=== PATIENT | female | born 1995 | race Caucasian/White ===

== ENCOUNTER → 2021-07-05 | Outpatient (CLI) | payer BC ==
[~2021-07-05] MED LIST: ASPI81CH33 PO; GLYB5TAB6 PO; PREN200C PO
== END ==
LOC: M LABSMTC 10:48
PROVIDERS: ATTEND Anesthesiology
DX: Z01.818 Encounter for other preprocedural examination (principal); Z11.52 Encounter for screening for COVID-19

== ENCOUNTER 2021-07-10 05:03 | Inpatient (IN) | payer BC ==
[2021-07-10] VITALS (10 sets, daily range): BP systolic 113–147; BP diastolic 65–88
[~2021-07-10] VITALS: Ht 157.5 cm; Wt 107.5 kg
[2021-07-10] MEDS ORDERED: LR 800 ML IV ONE (05:30)
[2021-07-10] MEDS ORDERED: BICITRA 30ML SOLN UDC PO ONE (06:00)
[2021-07-10] MEDS ORDERED: CLINDAMYCIN 900 MG in IV 1 EA IV ONE (06:00)
[2021-07-10] MEDS ORDERED: LR 1,000 ML IV SCH ×3 (06:00→09:25)
[2021-07-10] MEDS ORDERED: HOME MED LIST COMPLETE! XX SCH (06:05)
[2021-07-10 06:12] LABS: HEMATOCRIT 35.1 % (36.0-47.0); HEMOGLOBIN 11.1 g/dl (12.0-15.5); MEAN CORPUSCULAR HEMOGLOBIN 25.9 pg (27.0-33.0); MEAN CORPUSCULAR HGB CONC 31.6 g/dl (32.0-36.5); MEAN CORPUSCULAR VOLUME 81.8 fl (80.0-96.0); PLATELET COUNT, AUTOMATED 250 10^3/uL (150-450); RED BLOOD COUNT 4.29 10^6/uL (4.00-5.40); WHITE BLOOD COUNT 8.5 10^3/uL (4.0-10.0)
[2021-07-10] MEDS ORDERED: GENTAMICIN 380 MG in D5W 100 ML IV ONE (06:15)
[2021-07-10] MEDS ORDERED: diphenhydrAMINE 50MG/ML VIAL (J1200) IV PRN (07:58)
[2021-07-10] MEDS ORDERED: METOCLOPRAMIDE INJ 10MG/2ML VIAL (J2765 PER 1) IV PRN ×2 (07:58→09:25)
[2021-07-10] MEDS ORDERED: NALOXONE INJ 0.4MG/1ML VIAL (J2310 PER 1MG) IV PRN ×2 (07:58)
[2021-07-10] MEDS ORDERED: NALBUPHINE HCL 10 MG/ML AMP (J2300) IV PRN (07:58)
[2021-07-10] MEDS ORDERED: ONDANSETRON 4MG/2ML VIAL IV PRN ×3 (07:58→09:25)
[2021-07-10] MEDS ORDERED: PHENYLephrine 500MCG 5ML (100MCG/ML) SYRINGE As Ordered ONE (08:14)
[2021-07-10] MEDS ORDERED: ePHEDrine SULFATE 25 MG/5 ML(5MG/ML) SYRINGE As Ordered ONE (08:14)
[2021-07-10] MEDS ORDERED: dexameTHASONE 4 MG/ML 1ML VIAL (J1100 PER 1MG) As Ordered ONE (08:14)
[2021-07-10] MEDS ORDERED: MORPHINE PRES-FREE INJ 10 MG/10 ML VIAL (J2274) As Ordered ONE (08:14)
[2021-07-10] MEDS ORDERED: ACETAMINOPHEN 1000MG 100ML IV BTL (OFIRMEV) (J0131 PER 10MG) As Ordered ONE (08:14)
[2021-07-10] MEDS ORDERED: OXYTOCIN 30 UNITS IN 0.9% NaCl 500ML IV BAG (J2590) As Ordered ONE ×2 (08:14→09:11)
[2021-07-10] MEDS ORDERED: KETOROLAC 60MG 2ML VIAL As Ordered ONE (08:14)
[2021-07-10] MEDS ORDERED: ONDANSETRON 4MG/2ML VIAL As Ordered ONE (08:14)
[2021-07-10] MEDS ORDERED: PERCOCET 5MG/325MG TAB PO PRN (09:00)
[2021-07-10] MEDS ORDERED: RHOGAM 300 MCG (1500 IU) INJ (J2790) IM SCH (09:00)
[2021-07-10] MEDS ORDERED: SIMETHICONE 80MG CHEW TAB PO PRN (09:00)
[2021-07-10] MEDS ORDERED: MEASLES,MUMPS,RUBELLA VACCINE INJ (MMR-II) (90707) SC SCH (09:00)
[2021-07-10] MEDS: PRENATAL VITAMINS CHEWABLE TABLET PO SCH (09:00)
--- NOTE | 2021-07-10 09:06 | ROOPDOC ---
[facility] Report Of Operation Report of Operation DATE OF PROCEDURE: 07/10/21 Report of operation Preoperative diagnosis: 38-4/7 weeks gestation, gestational diabetes, chronic hypertension, prior section Postoperative diagnosis: Same Procedure: Repeat low transverse section Surgeon: Anastacio Franklin M.D. Asst.: Ericka Collins MD EBL: 500 ml. Urine output: 100 mL's. Findings: 10 lbs. 12 oz. female , 's 7 and 9 g normal uterus, surgically absent left ovary, left partial salpingectomy noted, normal right ovary and fallopian tube. Anterior low-lying placenta. Operative summary: Patient states the operating room where spinal anesthesia was induced. She was prepped and draped in a sterile fashion in the supine position. A Reaves catheter was placed. A Pfannenstiel skin incision was made with scalpel. Fascia was incised and extended bilaterally. The fascia was dissected off the rectus muscles. The peritoneal cavity was entered. A Mobius retractor was placed. A bladder flap was created. A curvilinear incision was made in lower uterine segment until Clear fluid was noted. The placenta was noted adhered to the incision site. The incision was extended manually. The was delivered from the vertex position with a single use of the vacuum extractor. Cord was doubly clamped and cut. The was handed to awaiting nurses. The placenta was expressed. Uterus was closed with O-Vicryl in a running locked fashion. A second imbricating layer of Vicryl was placed. Peritoneum was closed with 2-0 Vicryl a running fashion. Fascia was closed with 0 Vicryl in running fashion. Skin was closed 4-0 Monocryl subcuticular sutures. Sponge, instrument and needle counts were correct. Ericka Collins MD, assisted with all aspects of the procedure. She helped close each layer of the incision and deliver the fetus. ANASTACIO FRANKLIN MD Jul 10, 2021 09:06
[2021-07-10] MEDS ORDERED: IBUP80TA PO (09:07)
[2021-07-10] MEDS ORDERED: OXYC1TAB23 PO (09:07)
[2021-07-10] MEDS ORDERED: oxyCODONE 5MG TAB PO PRN (09:25)
[2021-07-10] MEDS ORDERED: fentaNYL 100 MCG/2 ML INJECTION (J3010) IV PRN (09:25)
[2021-07-10] MEDS ORDERED: TRANEXAMIC ACID INJection 1,000 MG in D5W 100 ML IV ONE (09:45)
[2021-07-10] MEDS ORDERED: METHYLERGONOVINE MALEATE 0.2 MG/ML VIAL (J2210) IM ONE (09:45)
[2021-07-10] MEDS ORDERED: TRANEXAMIC ACID 100 MG/ML 10ML VIAL As Ordered ONE (09:48)
[2021-07-10] MEDS: OXYTOCIN DRIP 30 UNITS in IV 1 EA IV SCH ×4 (09:55→12:47)
[2021-07-10 10:29] LABS: MEAN CORPUSCULAR HEMOGLOBIN 25.8 pg (27.0-33.0); MEAN CORPUSCULAR HGB CONC 31.3 g/dl (32.0-36.5); MEAN CORPUSCULAR VOLUME 82.5 fl (80.0-96.0); PLATELET COUNT, AUTOMATED 242 10^3/uL (150-450); RED BLOOD COUNT 3.88 10^6/uL (4.00-5.40); WHITE BLOOD COUNT 13.4 10^3/uL (4.0-10.0)
[2021-07-10] MEDS ORDERED: METHYLERGONOVINE MALEATE 0.2 MG/ML VIAL (J2210) ONE (14:25)
[2021-07-10] MEDS: KETOROLAC 30 MG/ML 1ML VIAL IV SCH ×2 (15:43→20:49)
[2021-07-11] MEDS: KETOROLAC 30 MG/ML 1ML VIAL IV SCH (02:11)
[2021-07-11 02:26] VITALS: BP 149/73
[2021-07-11 06:20] VITALS: BP 148/77
[2021-07-11] MEDS: PRENATAL VITAMINS CHEWABLE TABLET PO SCH (08:24)
[2021-07-11 09:05] LABS: HEMATOCRIT 25.4 % (36.0-47.0); MEAN CORPUSCULAR HEMOGLOBIN 25.8 pg (27.0-33.0); MEAN CORPUSCULAR HGB CONC 30.7 g/dl (32.0-36.5); MEAN CORPUSCULAR VOLUME 84.1 fl (80.0-96.0); PLATELET COUNT, AUTOMATED 221 10^3/uL (150-450); RED BLOOD COUNT 3.02 10^6/uL (4.00-5.40); WHITE BLOOD COUNT 8.9 10^3/uL (4.0-10.0)
[2021-07-11 09:07] LABS: HEMOGLOBIN 7.8 g/dl (12.0-15.5)
[2021-07-11 10:00] VITALS: BP 131/76
[2021-07-11] MEDS: IBUPROFEN 800 MG TAB PO SCH ×2 (11:12→18:05)
[2021-07-11] MEDS ORDERED: VALA500T5 PO (14:49)
[2021-07-11] MEDS: valACYclovir HCL 500 MG TAB PO SCH (15:34)
[2021-07-11] MEDS: PERCOCET 5MG/325MG TAB PO PRN ×2 (15:34→22:00)
[2021-07-11 18:00] VITALS: BP 134/61
[2021-07-11 22:00] VITALS: BP 143/80
[2021-07-12] MEDS: valACYclovir HCL 500 MG TAB PO SCH ×2 (00:27→07:54)
[2021-07-12 02:00] VITALS: BP 134/67
[2021-07-12] MEDS: IBUPROFEN 800 MG TAB PO SCH ×2 (03:13→11:13)
[2021-07-12 06:00] VITALS: BP 132/60
[2021-07-12] MEDS: PERCOCET 5MG/325MG TAB PO PRN (07:54)
[2021-07-12] MEDS: PRENATAL VITAMINS CHEWABLE TABLET PO SCH (07:54)
[2021-07-12] MEDS ORDERED: INFLUENZA QUADRIVALENT PF VACCINE 0.5ML SYRINGE IM ONE (09:00)
[2021-07-12 09:57] VITALS: BP 150/82
--- NOTE | 2021-07-12 11:13 | DS.PDOC ---
Discharge Summary General Date of Admission Jul 10, 2021 at 05:03 Date of Discharge July 12, 2021 Attending Physician: ANASTACIO FRANKLIN MD Discharge Summary PROCEDURES PERFORMED DURING STAY: section 2. Spinal anesthesia. ADMITTING DIAGNOSES: 1. Gestational diabetes 2. Chronic hypertension 3. Prior section. DISCHARGE DIAGNOSES: 1. Gestational hypertension 2. Chronic hypertension 3. Prior section. COMPLICATIONS/CHIEF COMPLAINT: Gestational Diabetic Chronic Hypertenstion 38WKS. HISTORY OF PRESENT ILLNESS: Mrs. Chaparro presented for scheduled section. She underwent a repeat section, productive of live born female infant a Apgars were 7 and 9 weight was 10 lbs. 12 oz. Estimated blood loss 500ml. Patient did well postoperatively by postoperative day #2 had met all discharge criteria is as discharged home in stable condition DISCHARGE MEDICATIONS: Please see below. ALLERGIES: Please see below. PHYSICAL EXAMINATION ON DISCHARGE: VITAL SIGNS: Please see below. GENERAL: No distress HEENT: WNL ABDOMINAL EXAMINATION: Fundus firm. Dressing intact EXTREMITIES: Equal strength and motion SKIN: Intact NEUROLOGICAL EXAMINATION: Grossly intact PSYCHIATRIC EXAMINATION: Appropriate LABORATORY DATA: Please see below. PROGNOSIS: Good ACTIVITY: As tolerated. Pelvic rest. DIET: As tolerated DISCHARGE PLAN: Discharge today. Remove dressing day 5 DISPOSITION: Home DISCHARGE INSTRUCTIONS: 1. Pelvic rest. Continue vitamins. Medications as ordered. Call with fever, nausea, vomiting, chills, foul lochia, wound exudate or evidence infection. RTO early next week for blood pressure check. DISCHARGE CONDITION: Stable Vital Signs/I&Os Vital Signs Date Time Temp Pulse Resp B/P (MAP) Pulse Ox O2 Delivery O2 Flow Rate FiO2 07/12/21 09:57 98.0 111 17 150/82 (104) 96 Room Air I&O- Last 24 Hours up to 6 AM 07/12/21 05:59 Intake Total 875 ml Output Total 400 ml Balance 475 ml Microbiology Microbiology 07/11/21 Herpes Simplex Virus Culture, Received Pending 07/11/21 Herpes Simplex Virus I (PCR), Received Pending 07/11/21 Herpes Simplex Virus II (PCR), Received Pending Discharge Medications Scheduled Aspirin (Aspirin) 81 Mg Tab.chew, 81 MG PO DAILY, (Reported) Docosahexanoic Acid ( Dha) 200 Mg Capsule, 200 MG PO DAILY, (Reported) Glyburide (Glyburide) 5 Mg Tablet, 5 MG PO DAILY, (Reported) Ibuprofen (Ibuprofen) 800 Mg Tablet, 800 MG PO Q8H Valacyclovir HCl (Valacyclovir) 500 Mg Tablet, 1,000 MG PO Q8H Scheduled PRN Oxycodone HCl/Acetaminophen (Oxycodone-Acetaminophen 5-325) 1 Each Tablet, 1 TAB PO TIDP PRN for pain Allergies Coded Allergies: Penicillins (Verified Allergy, Unknown, HIVES, THROAT CLOSES, 07/06/21) KIT VALENZUELA MD. Jul 12, 2021 11:13
[2021-07-12] MEDS ORDERED: VALA500T5 PO (11:47)
== END 2021-07-12 10:53 | disposition home or self-care (01) | DRG 540 ==
LOC: M LDI 05:03 → M OBS 11:39
PROVIDERS: ADMIT Specialist; ATTEND Specialist
PROC: 10D00Z1 Extraction of Products of Conception, Low, Open Approach (ICD-10-PCS; principal; 2021-07-10 07:30)
DX: O34.211 Maternal care for low transverse scar from previous cesarean delivery (principal); O24.425 Gestational diabetes mellitus in childbirth, controlled by oral hypoglycemic drugs; Z88.0 Allergy status to penicillin; Z37.0 Single live birth; Z3A.38 38 weeks gestation of pregnancy; Z79.899 Other long term (current) drug therapy; Z79.82 Long term (current) use of aspirin; O13.4 Gestational [pregnancy-induced] hypertension without significant proteinuria, complicating childbirth

== ENCOUNTER → 2022-12-26 | Outpatient (REF) | payer BC ==
[~2022-12-26] MED LIST changes: +IBUP80TA PO; +OXYC1TAB23 PO; +VALA500T5 PO
== END ==
LOC: M SFHCWAGY 12:53
PROVIDERS: ATTEND Specialist
DX: Z34.83 Encounter for supervision of other normal pregnancy, third trimester (principal)